=== PATIENT | female | born 1960 | race Caucasian/White ===

== ENCOUNTER 2017-03-14 22:01 | Emergency (ER) | payer SELFPAY ==
[~2017-03-14] VITALS: Ht 170.2 cm; Wt 113.6 kg
[2017-03-14 23:36] VITALS: BP 140/80
== END 2017-03-14 23:36 | disposition home or self-care (01) ==
LOC: ED 22:01
DX: M79.89 Other specified soft tissue disorders (principal); M79.661 Pain in right lower leg
CPT/HCPCS: J1650